=== PATIENT | male | born 1990 | race Caucasian/White ===

== ENCOUNTER 2021-08-03 17:00 | Emergency (ER) | payer SELFPAY ==
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
[2021-08-03 17:06] VITALS: BP 161/92; PULSE 86; RESP 18; TEMP 36.3; O2SAT 100
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
== END 2021-08-03 18:40 | disposition home or self-care (01) ==
PROVIDERS: Emergency Provider Emergency Medicine
DX: S80.12XA Contusion of left lower leg, initial encounter (principal); W01.198A Fall on same level from slipping, tripping and stumbling with subsequent striking against other object, initial encounter
CPT/HCPCS: 73590; 99283

== ENCOUNTER 2024-10-13 19:53 | Emergency (ER) | payer OTHER, SELFPAY ==
[2024-10-13 20:01] VITALS: BP 149/97; PULSE 92; RESP 20; TEMP 36.6; O2SAT 99
--- NOTE | 2024-10-14 02:42 | PC.NURSE ---
Patient called for room assignment, no answer and not seen in waiting room.
== END 2024-10-14 02:28 | disposition left against medical advice (07) ==
LOC: ANHED 10-14 02:41
DX: R51.9 Headache, unspecified (principal); I10 Essential (primary) hypertension
CPT/HCPCS: 99199